=== PATIENT | female | born 1955 | race Caucasian/White ===

== ENCOUNTER 2016-08-02 12:29 | Emergency (ER) | payer BC ==
[2016-08-02 14:02] LABS: HEMOGLOBIN 15.6 gm/dl (12.3-15.3); RED BLOOD COUNT 4.96 M/UL (4.00-5.10); WHITE BLOOD COUNT 5.4 K/UL (4.5-11.0)
[2016-08-02 14:23] LABS: BUN/CREATININE RATIO 22 (0-10)
== END 2016-08-02 17:05 | disposition home or self-care (01) ==
LOC: ER1 12:29
PROVIDERS: Emergency Medicine
DX: M54.5 Low back pain (principal); W06.XXXA Fall from bed, initial encounter; Y92.009 Unspecified place in unspecified non-institutional (private) residence as the place of occurrence of the external cause
CPT/HCPCS: 36415; 72131; 80048; 81001; 85025; 96374; 96375; 99284; J1885; J2270; J2405; J7040

== ENCOUNTER 2021-05-25 07:29 | Emergency (ER) | payer BC ==
[2021-05-25 08:02] LABS: HEMOGLOBIN 15.7 gm/dl (12.3-15.3); RED BLOOD COUNT 4.96 M/UL (4.00-5.10); WHITE BLOOD COUNT 5.5 K/UL (4.5-11.0)
[2021-05-25 08:19] LABS: BUN/CREATININE RATIO 18 (0-10)
[2021-05-25] MEDS ORDERED: ZOFRAN ODT 4 MG4 MG PO (12:49)
[2021-05-25] MEDS ORDERED: PROTONIX 40 MG40 M1 PO (12:49)
== END 2021-05-25 13:05 | disposition home or self-care (01) ==
LOC: ER1 07:29
PROVIDERS: Family Medicine
DX: R10.10 Upper abdominal pain, unspecified (principal); G89.29 Other chronic pain; M54.6 Pain in thoracic spine; F11.20 Opioid dependence, uncomplicated; Z98.84 Bariatric surgery status; F17.200 Nicotine dependence, unspecified, uncomplicated; Z88.0 Allergy status to penicillin; Z86.79 Personal history of other diseases of the circulatory system
CPT/HCPCS: 80053; 81001; 82270; 83690; 85025; 85610; 86850; 86900; 86901; 96374; 96375; 99284; C9113; J2405; J2550; Q9967